=== PATIENT | female | born 1990 | race Caucasian/White ===

== ENCOUNTER 2020-03-20 23:45 | Emergency (ER) | payer SELFPAY ==
[2020-03-21] MEDS ORDERED: ALBUTEROL SULFATE 0.083% NEB 2.5 MG/3 ML AMPUL NEB ONE ×3 (00:12→04:13)
[2020-03-21] MEDS ORDERED: PREDNISONE 10 MG TABLET PO ONE ×2 (00:13→04:27)
--- NOTE | 2020-03-21 00:15 | ER Document Report ---
ED Medical Screen (RME) - General Chief Complaint: Shortness Of Breath Stated Complaint: ASTHMA ATTACK Time Seen by Provider: 03/21/20 00:12 Notes: 29-year-old female with history of asthma here with fever, chills, body aches, cough and shortness of breath since Saturday. No nausea vomiting or diarrhea. States albuterol inhaler is not helping with her shortness of breath. Physical exam: General exam nontoxic Pulmonary diminished breath sounds bilaterally without acute respiratory distress Cardiac regular rate and rhythm no murmurs rubs and gallops Abdomen nontender and nondistended. Neuro no focal neuro deficits I have greeted and performed a rapid initial assessment of this patient. A comprehensive ED assessment and evaluation of the patient, analysis of test results and completion of the medical decision making process will be conducted by additional ED providers. - Related Data Allergies/Adverse Reactions: No Known Allergies Allergy (Unverified 03/21/20 00:12) Past Medical History - Social History Frequency of alcohol use: None Drug Abuse: None Physical Exam - Vital signs Vitals: Temp Pulse Resp BP Pulse Ox 98.4 F 85 21 H 143/78 H 100 03/20/20 23:51 03/20/20 23:51 03/20/20 23:51 03/20/20 23:51 03/20/20 23:51 Course - Vital Signs Vital signs: Temp Pulse Resp BP Pulse Ox 98.4 F 85 21 H 143/78 H 100 03/20/20 23:51 03/20/20 23:51 03/20/20 23:51 03/20/20 23:51 03/20/20 23:51
--- NOTE | 2020-03-21 01:14 | RADIOLOGY REPORT (SQ) ---
AP Portable chest: 03/21/2020 12:13 AM CDT History: 29-year old patient with dyspnea and wheezing. Comparison: None available Findings: The cardiomediastinal silhouette is normal in size. No pneumothorax is seen. No acute airspace opacities are seen. No discrete pleural effusion is apparent. Impression: No acute airspace opacities are seen.
[2020-03-21] MEDS ORDERED: PREDNISONE 10 MG TABLET ONE (04:08)
[2020-03-21] MEDS ORDERED: ALBUTEROL SULFATE HFA (90 MCG/PUFF) 8 GM MDI (1 MDI/ER DISP) IH PRN (04:28)
--- NOTE | 2020-03-21 04:34 | ER Document Report ---
ED General - General Chief Complaint: Shortness Of Breath Stated Complaint: ASTHMA ATTACK Time Seen by Provider: 03/21/20 00:12 - HPI Context: This is a 29-year-old female with a history of asthma is presenting to the emergency department complaint of shortness of breath. Patient states that she has been out of her regular albuterol inhaler and has had worsening shortness of breath and wheezing for the past 2 days patient is using a different type of albuterol inhaler compared to the one she usually uses and thinks it may be empty or defective. Patient states shortness of breath is worse with exertion or other activity. Patient states she was at work tonight and had to leave work because her shortness of breath got to the point where she was unable to work. Patient is also complaining of nonproductive cough. When asked by this MD, patient denies fever, chills, body aches, loss of sense of smell or sense of taste, prior COVID infection, known exposure to COVID positive persons or persons under investigation for COVID. Patient states that her symptoms seem similar to her typical asthma attacks which typically respond well to inhaled albuterol and steroids. Associated symptoms: Other - See HPI Exacerbated by: Other - See HPI Relieved by: Other - See HPI Similar symptoms previously: Yes - Related Data Allergies/Adverse Reactions: ceftriaxone [From Rocephin] Allergy (Verified 03/21/20 00:14) Past Medical History - General Information source: Patient - Social History Smoking Status: Current Every Day Smoker Frequency of alcohol use: None Drug Abuse: None Family History: Reviewed & Not Pertinent Patient has suicidal ideation: No Patient has homicidal ideation: No Pulmonary Medical History: Reports: Hx Asthma Past Surgical History: Reports: Hx Orthopedic Surgery, Hx Tubal Ligation Review of Systems - Review of Systems Constitutional: No symptoms reported EENT: No symptoms reported Cardiovascular: No symptoms reported Respiratory: Cough, Short of breath, Wheezing Gastrointestinal: No symptoms reported Genitourinary: No symptoms reported Female Genitourinary: No symptoms reported Musculoskeletal: No symptoms reported Skin: No symptoms reported Hematologic/Lymphatic: No symptoms reported Neurological/Psychological: No symptoms reported -: Yes All other systems reviewed and negative Physical Exam - Vital signs Vitals: Temp Pulse Resp BP Pulse Ox 98.4 F 85 21 H 143/78 H 100 03/20/20 23:51 03/20/20 23:51 03/20/20 23:51 03/20/20 23:51 03/20/20 23:51 - Notes Notes: CONSTITUTIONAL [Vital signs reviewed, Patient appears comfortable, Alert and oriented X 3, Normal stature.] HEAD [Atraumatic, Normocephalic.] EYES [Eyes are normal to inspection, No discharge from eyes, Extraocular muscles in tact, Sclera are normal, Conjunctiva are normal.] NECK [Normal ROM, No jugular venous distention, No meningeal signs, no carotid bruit.] RESPIRATORY CHEST [Chest is nontender, scant rhonchi and wheezing are present in all lung chris but there is very audible breath sounds in all lung chris, No respiratory distress.] CARDIOVASCULAR [RRR, No murmurs, Normal S1 S2, No rub, No gallop.] ABDOMEN [Abdomen is nontender, No pulsatile masses, No other masses, Bowel sounds normal, No distension, No peritoneal signs, No hernias.] BACK [There is no CVA Tenderness, There is no tenderness to palpation, Normal inspection.] UPPER EXTREMITY [Inspection normal, No cyanosis, No clubbing, No edema, 2+ radial pulses.] LOWER EXTREMITY [Inspection normal, No cyanosis, No clubbing, No edema, No calf tenderness, 2+ femoral pulses.] NEURO [No focal motor deficits, No focal sensory deficits, Speech normal.] SKIN [Skin is warm, Skin is dry, Skin is normal color.] PSYCHIATRIC [Normal affect. ] Course - Re-evaluation Re-evalutation: 03/21/20 04:36 Results of ED MSE discussed with patient. All questions were answered prior to discharge. Emergency signs and symptoms, reasons to return to the emergency department discussed with patient. - Vital Signs Vital signs: Temp Pulse Resp BP Pulse Ox 98.4 F 85 21 H 143/78 H 100 03/20/20 23:51 03/20/20 23:51 03/20/20 23:51 03/20/20 23:51 03/20/20 23:51 - Diagnostic Test Radiology reviewed: Reports reviewed Discharge - Discharge Clinical Impression: Acute asthma exacerbation Qualifiers: Asthma severity: unspecified severity Asthma persistence: unspecified Qualified Code(s): J45.901 - Unspecified asthma with (acute) exacerbation Condition: Stable Disposition: HOME, SELF-CARE Additional Instructions: Return to the Emergency Department without delay if any worse. HOME CARE INSTRUCTIONS & INFORMATION: Thank you for choosing us for your medical needs. We hope you're satisfied with the care you received. After you leave, you must properly care for your problem and, at the same time, observe its progress. Any condition can change. Some illnesses can change rapidly over hours or days. If your condition worsens, return to the Emergency Department or see your physician promptly. ABOUT YOUR X-RAYS AND EKG'S: If you had an EKG or X-rays taken, they have been read by the Emergency Physician. The X-rays and EKG's will also be read by a Radiologist or Polysomnographic Technician within 24 hours. If discrepancies are noted, you will be notified by telephone. Please be certain the ED has a correct telephone number & address where you can be reached. Also, realize that some fractures or abnormalities do not show up on initial X-rays. If your symptoms continue, see your physician. ABOUT YOUR LABORATORY TEST: If you had laboratory tests, the results have been reviewed by the Emergency Physician. Some test results (for example cultures) may not be available for several days. You will be contacted if any test result shows you need additional treatment. Please be certain the ED has a correct telephone number and address where you can be reached. ABOUT YOUR MEDICATIONS: You will receive instructions on how to take your medicine on the prescription label you receive. Additional information may be provided by the Pharmacy. If you have questions afterwards, call the ED for clarification or further instructions. Some prescribed medications may cause drowsiness. Do not perform tasks such as driving a car or operating machinery without consulting your Pharmacist. If you feel you need a refill of pain medication, your condition will need re-evaluation. Please do not call for a refill of any medication. ABOUT YOUR SIGNATURE: Signature of this document acknowledges to followin. Understanding that you received emergency treatment and that you may be released before al medical problems are known or treated. Please be certain the ED has a correct phone number & address where you can be reached. 2. Acknowledgement that you will arrange for follow-up care as recommended. 3. Authorization for the Emergency Physician to provide information to your follow-up Physician in order to maximize your care. AT ANY TIME, IF YOUR SYMPTOMS CHANGE SIGNIFICANTLY OR WORSEN OR YOU DEVELOP NEW SYMPTOMS, RETURN TO THE EMERGENCY DEPARTMENT IMMEDIATELY FOR RE-EVALUATION. OUR GOAL IS TO PROVIDE EXCELLENT MEDICAL CARE! WE HOPE THAT WE HAVE MET YOUR EXPECTATIONS DURING YOUR EMERGENCY DEPARTMENT VISIT AND THAT YOU FEEL YOU HAVE RECEIVED EXCELLENT CARE! Prescriptions: Prednisone [Deltasone 20 mg Tablet] 3 tab PO DAILY 4 Days #12 tablet Albuterol Sulfate [Proair Hfa Inhalation Aerosol 8.5 gm Mdi] 1 puff IH Q4 PRN #1 mdi PRN Reason: Forms: Return to Work Referrals: GHADA BIANCHI MD [HONORARY] - Follow up as needed
[2020-03-21 04:54] VITALS: BP 121/62
== END 2020-03-21 04:52 | disposition home or self-care (01) ==
LOC: ER 23:45
DX: J45.901 Unspecified asthma with (acute) exacerbation (principal); R06.02 Shortness of breath; R05 Cough; F17.200 Nicotine dependence, unspecified, uncomplicated; Z88.1 Allergy status to other antibiotic agents
CPT/HCPCS: 99283; 71045; J7512; J7613; J3490